=== PATIENT | female | born 1950 | race Asian ===

== ENCOUNTER 2018-12-28 19:02 | Emergency (ER) | payer MEDICARE, OTHER ==
[2018-12-28] MEDS: IBUPROFEN 200 MG TAB PO (21:13)
[2018-12-28] MEDS: HYDROCODONE/APAP (5/325) TAB PO (21:14)
== END 2018-12-28 22:05 | disposition home or self-care (01) ==
LOC: FTE 19:02
DX: S52.501A Unspecified fracture of the lower end of right radius, initial encounter for closed fracture (principal); W07.XXXA Fall from chair, initial encounter; Y92.9 Unspecified place or not applicable
CPT/HCPCS: 73110; 73110-RT; 73130-RT; 99283-25